=== PATIENT | female | born 1980 | race Caucasian/White ===

== ENCOUNTER → 2018-06-07 12:12 | Outpatient (CLI) | payer OTHER, SELFPAY ==
--- NOTE | 2018-06-07 12:21 | XR_ITS ---
XR tibia fibula LT 2V CLINICAL INDICATION: Pain, prior ORIF Follow-up fracture/ORIF ITS.REASON: CLOSED FX TIBIA ORDERING PHYSICIAN: Kaleigh Benites PATIENT AGE: 37 years Comparison: 11/22/2008 FINDINGS: There is a bone plate along the distal anterior and medial aspect of the tibia stabilizing an old fracture. Callus formation is present at the fracture site. Faint lucency is noted at the fracture site however, there appears to have been bony union.. No evidence of bone plate fracture or migration. There is good alignment. The proximal tib-fib have an unremarkable appearance. IMPRESSION: Prior ORIF distal tibia with good alignment. No evidence of nonunion
== END ==
PROVIDERS: PCP Nurse Practitioner Family; Visit Provider Nurse Practitioner Family
DX: S82.202A Unspecified fracture of shaft of left tibia, initial encounter for closed fracture (principal)
CPT/HCPCS: 73590